=== PATIENT | female | born 1975 | race African-American/Black ===

== ENCOUNTER 2017-05-24 15:46 | Emergency (ER) | payer MEDICAID ==
[~2017-05-24] VITALS: Ht 160 cm; Wt 91.0 kg
[2017-05-24 16:38] VITALS: BP 147/92
[2017-05-24] MEDS ORDERED: METH5TAB4 PO (16:44)
[2017-05-24 17:10] LABS: HEMATOCRIT 35.7 % (34.6-47.8); HEMOGLOBIN 11.8 g/dL (11.7-16.4); WHITE BLOOD COUNT 6.1 x10^3/uL (3.4-10)
[2017-05-24 17:21] LABS: BLOOD UREA NITROGEN 8 mg/dL (7-18)
[2017-05-24 17:24] LABS: ACETAMINOPHEN < 2 mcg/mL (10-30); ASPARTATE AMINO TRANSFERASE 19 U/L (15-37)
[2017-05-24 17:33] LABS: DIFF TOTAL CELLS COUNTED 100 CELL DIFF
[2017-05-24 17:34] LABS: ANISOCYTOSIS 1+; VERIFY COUNTS? YES
[2017-05-24 17:35] LABS: MICROCYTOSIS 1+
== END 2017-05-24 20:14 | disposition home or self-care (01) ==
LOC: ED 17:08
DX: F33.8 Other recurrent depressive disorders (principal); R45.851 Suicidal ideations
CPT/HCPCS: 36415; 80053; 80307; 80329; 85025; 99284; G0479; G0480

== ENCOUNTER 2017-11-27 15:04 | Emergency (ER) | payer MEDICAID ==
[~2017-11-27] VITALS: Ht 165.1 cm; Wt 96.0 kg
[~2017-11-27 15:04] MED LIST: METH5TAB4 PO
[2017-11-27 15:05] VITALS: BP 127/85
== END 2017-11-27 16:10 | disposition home or self-care (01) ==
LOC: ED 15:30
DX: T18.198A Other foreign object in esophagus causing other injury, initial encounter (principal); F19.10 Other psychoactive substance abuse, uncomplicated; F17.210 Nicotine dependence, cigarettes, uncomplicated; X58.XXXA Exposure to other specified factors, initial encounter; Y93.89 Activity, other specified; Y92.89 Other specified places as the place of occurrence of the external cause; Y99.8 Other external cause status
CPT/HCPCS: 74022; 99284

== ENCOUNTER 2018-09-26 23:32 | Inpatient (IN) | payer MEDICAID, OTHER ==
[~2018-09-26] VITALS: Ht 157.5 cm; Wt 90.0 kg
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
[2018-09-27 00:21] LABS: AMPHETAMINE SCREEN, URINE Positive (Negative); BARBITURATE SCREEN, URINE Negative (Negative); BENZODIAZEPINE SCREEN, URINE Negative (Negative); CANNABINOID SCREEN, URINE Negative (Negative); COCAINE SCREEN, URINE Negative (Negative); METHADONE SCREEN, URINE Negative (Negative); OPIATE SCREEN, URINE Negative (Negative)
[2018-09-27 00:23] LABS: ALANINE AMINOTRANSFERASE 45 U/L (12-78); ALBUMIN 3.5 g/dL (3.4-5.0); ANION GAP 6 mmol/L (5-15); CALCIUM 8.8 mg/dL (8.5-10.1); CHLORIDE 113 mmol/L (98-107); CREATININE 0.78 mg/dL (0.55-1.02); SALICYLATE LEVEL 2.1 mg/dL (2.8-20.0)
[2018-09-27 00:27] LABS: ACETAMINOPHEN < 2 mcg/mL (10-30)
[2018-09-27 00:28] LABS: ALKALINE PHOSPHATASE 111 U/L (45-117); BILIRUBIN,TOTAL 0.3 mg/dL (0.2-1.0); TOTAL PROTEIN 6.7 g/dL (6.4-8.2)
[2018-09-27 00:40] LABS: BASOPHILS # (AUTO) 0.05 x10^3/uL (0-0.1); BASOPHILS % (AUTO) 1 % (0-1); EOSINOPHILS # (AUTO) 0.26 x10^3/uL (0-0.4); EOSINOPHILS % (AUTO) 4 % (1-7); LYMPHOCYTES # (AUTO) 2.04 x10^3/uL (1-3.4); LYMPHOCYTES % (AUTO) 30 % (22-44); MD NO; MEAN CORPUSCULAR HEMOGLOBIN 25.5 pg (27.0-34.8); MEAN CORPUSCULAR HGB CONC 33.2 g/dL (32.4-35.8); MEAN CORPUSCULAR VOLUME 76.7 fL (80-100); MEAN PLATELET VOLUME 8.2 fL (7.4-10.4); MONOCYTES # (AUTO) 0.45 x10^3/uL (0.2-0.8); MONOCYTES % (AUTO) 6 % (2-9); NEUTROPHILS # (AUTO) 4.13 x10^3/uL (1.8-6.8); NEUTROPHILS % (AUTO) 60 % (42-75); PLATELET COUNT 453 x10^3/uL (130-400); RED BLOOD COUNT 4.86 x10^6/uL (3.82-5.3); RED CELL DISTRIBUTION WIDTH 19.2 % (9.6-15.2)
[2018-09-27] MEDS ORDERED: PROZAC (00:41)
[2018-09-27] MEDS ORDERED: HYDROXYZINE (00:41)
[2018-09-27] MEDS ORDERED: GEODON (00:41)
[2018-09-27] MEDS ORDERED: GABAPENTIN (00:41)
[2018-09-27] MEDS ORDERED: TRAZADONE (00:41)
--- NOTE | 2018-09-27 00:45 | NUR ---
PT AMBULATED TO BATHROOM. REMAINS VERY UPSET AND CRYING. VSS. UPDATED ON PLAN OF CARE.
[2018-09-27] MEDS ORDERED: LORazepam 1MG TABLET PO ONE (01:00)
[2018-09-27] MEDS ORDERED: LORazepam 1MG TABLET ONE (01:01)
--- NOTE | 2018-09-27 01:04 | NUR ---
PT MEDICATED PER EMAR 1MG ATIVAN PO.
--- NOTE | 2018-09-27 02:14 | NUR ---
PT SLEEPING AT THIS TIME. SITTER AT BEDSIDE. VSS.
--- NOTE | 2018-09-27 03:00 | NUR ---
PT SLEEPING. VSS. SITTER AT BEDSIDE.
[2018-09-27] MEDS ORDERED: ONDANSETRON ODT 4 MG PO PRN (04:00)
[2018-09-27] MEDS ORDERED: DOCUSATE 100 MG CAPSULE PO PRN (04:00)
[2018-09-27] MEDS ORDERED: morphine SULFATE 10 MG/ML, 1ML IVPush PRN (04:00)
--- NOTE | 2018-09-27 04:15 | NUR ---
PT REMAINS SLEEPING. VSS. UPDATED ON PLAN OF CARE. SITTER AT BEDSIDE.
[2018-09-27 04:47] LABS: FREE T4 (FREE THYROXINE) 1.19 ng/dL (0.76-1.46); THYROID STIMULATING HORMONE 0.622 mIU/L (0.358-3.740)
--- NOTE | 2018-09-27 05:10 | NUR ---
PT SLEEPING, UPDATED ON MOVING TO ROOM. VSS. SITTER AT BEDSIDE. REPORT GIVEN TO JOSE POSADAS.
[2018-09-27 05:32] VITALS: BP 109/71
[2018-09-27 07:15] VITALS: BP 107/69
[2018-09-27] MEDS: GABAPENTIN 300 MG CAPSULE PO PRN ×3 (09:19→20:17)
[2018-09-27] MEDS: LORazepam 1MG TABLET PO PRN ×2 (09:22→19:58)
[2018-09-27 12:25] LABS: MICROSCOPIC INDICATED
[2018-09-27 12:41] LABS: CULTURE INDICATED? YES
[2018-09-27 19:13] VITALS: BP 103/64
[2018-09-27] MEDS ORDERED: NICOTINE 21 MG/24 HR PATCH.TD24 TD ONE (20:30)
[2018-09-27] MEDS: ACETAMINOPHEN 325 MG TABLET PO PRN (21:38)
[2018-09-28] MEDS: LORazepam 1MG TABLET PO PRN (01:07)
[2018-09-28] MEDS: ACETAMINOPHEN 325 MG TABLET PO PRN (03:17)
[2018-09-28 08:00] VITALS: BP 122/73
[2018-09-28 08:18] LABS: ALBUMIN 2.8 g/dL (3.4-5.0); ANION GAP 4 mmol/L (5-15); CALCIUM 8.3 mg/dL (8.5-10.1); CHLORIDE 110 mmol/L (98-107)
[2018-09-28 08:20] LABS: MEAN CORPUSCULAR HGB CONC 32.6 g/dL (32.4-35.8); MEAN CORPUSCULAR VOLUME 76.7 fL (80-100); MEAN PLATELET VOLUME 7.9 fL (7.4-10.4); PLATELET COUNT 422 x10^3/uL (130-400); RED BLOOD COUNT 4.47 x10^6/uL (3.82-5.3); RED CELL DISTRIBUTION WIDTH 19.5 % (9.6-15.2)
[2018-09-28 08:23] LABS: ALANINE AMINOTRANSFERASE 40 U/L (12-78); ALKALINE PHOSPHATASE 88 U/L (45-117); BILIRUBIN,TOTAL 0.4 mg/dL (0.2-1.0); CREATININE 0.59 mg/dL (0.55-1.02); TOTAL PROTEIN 5.8 g/dL (6.4-8.2)
[2018-09-28 10:30] LABS: BASOPHILS # (AUTO) 0.03 x10^3/uL (0-0.1); BASOPHILS % (AUTO) 1 % (0-1); EOSINOPHILS # (AUTO) 0.17 x10^3/uL (0-0.4); EOSINOPHILS % (AUTO) 3 % (1-7); LYMPHOCYTES # (AUTO) 1.93 x10^3/uL (1-3.4); LYMPHOCYTES % (AUTO) 39 % (22-44); MD SCAN; MONOCYTES # (AUTO) 0.33 x10^3/uL (0.2-0.8); MONOCYTES % (AUTO) 7 % (2-9); NEUTROPHILS # (AUTO) 2.49 x10^3/uL (1.8-6.8); NEUTROPHILS % (AUTO) 50 % (42-75)
[2018-09-28] MEDS: GABAPENTIN 300 MG CAPSULE PO PRN (13:48)
== END 2018-09-28 15:44 | DRG 885 ==
LOC: ED 23:59 → EDIP 09-27 02:37 → 2N 09-27 05:26
PROVIDERS: ADMIT Internal Medicine; ATTEND Internal Medicine
DX: F33.0 Major depressive disorder, recurrent, mild (principal); R45.851 Suicidal ideations; F29 Unspecified psychosis not due to a substance or known physiological condition; F15.10 Other stimulant abuse, uncomplicated; F17.210 Nicotine dependence, cigarettes, uncomplicated
CPT/HCPCS: 36415; 80053; 80307; 80329; 81001; 84439; 84443; 84703; 85025; 87086; G0378; G0480

== ENCOUNTER 2018-09-28 12:44 | Inpatient (IN) | payer MEDICAID ==
[~2018-09-28] VITALS: Ht 157.5 cm; Wt 87.8 kg
[~2018-09-28 12:44] MED LIST changes: +GABAPENTIN; +GEODON; +HYDROXYZINE; +PROZAC; +TRAZADONE
[2018-09-28] MEDS ORDERED: POLYETHYLENE GLYCOL 17 GM PACKET PO PRN (13:30)
[2018-09-28] MEDS ORDERED: BISACODYL 10 MG SUPP PR PRN (13:30)
[2018-09-28 16:03] VITALS: BP 129/86
[2018-09-28 16:53] LABS: BASOPHILS # (AUTO) 0.04 x10^3/uL (0-0.1); BASOPHILS % (AUTO) 1 % (0-1); EOSINOPHILS # (AUTO) 0.22 x10^3/uL (0-0.4); EOSINOPHILS % (AUTO) 4 % (1-7); HCT (SEDRATE) 35.1 % (34.6-47.8); LYMPHOCYTES # (AUTO) 1.75 x10^3/uL (1-3.4); LYMPHOCYTES % (AUTO) 31 % (22-44); MD NO; MEAN CORPUSCULAR HEMOGLOBIN 25.4 pg (27.0-34.8); MEAN CORPUSCULAR HGB CONC 33.1 g/dL (32.4-35.8); MEAN CORPUSCULAR VOLUME 76.9 fL (80-100); MEAN PLATELET VOLUME 7.9 fL (7.4-10.4); MONOCYTES # (AUTO) 0.37 x10^3/uL (0.2-0.8); MONOCYTES % (AUTO) 7 % (2-9); NEUTROPHILS # (AUTO) 3.19 x10^3/uL (1.8-6.8); NEUTROPHILS % (AUTO) 57 % (42-75); PLATELET COUNT 476 x10^3/uL (130-400); RED BLOOD COUNT 4.56 x10^6/uL (3.82-5.3); RED CELL DISTRIBUTION WIDTH 19.1 % (9.6-15.2)
[2018-09-28 16:57] LABS: ALBUMIN 2.7 g/dL (3.4-5.0); ANION GAP 6 mmol/L (5-15); CALCIUM 8.5 mg/dL (8.5-10.1); CHLORIDE 109 mmol/L (98-107)
[2018-09-28 16:59] VITALS: BP 129/86
[2018-09-28 17:21] LABS: ALANINE AMINOTRANSFERASE 37 U/L (12-78); ALKALINE PHOSPHATASE 103 U/L (45-117); BILIRUBIN,TOTAL 0.3 mg/dL (0.2-1.0); CHOL/HDL RATIO 4.1; CHOLESTEROL, TOTAL 148 mg/dL (140-239); FOLATE LEVEL 15.9 ng/mL (3.1-17.5); HDL CHOL % 24 % (28-40); HDL CHOLESTEROL (DIRECT) 36 mg/dL (40-60); LDL CHOLESTEROL,CALCULATED 82 mg/dL (54-169); LDL/HDL RATIO 2.3 (0.5-3.0); T4 (THYROXINE) 9.7 mcg/dL (4.8-13.9); THYROID STIMULATING HORMONE 0.424 mIU/L (0.358-3.740); TOTAL PROTEIN 5.9 g/dL (6.4-8.2); TRIGLYCERIDES 151 mg/dL (50-200); VLDL CHOLESTEROL 30 mg/dL (0-25)
[2018-09-28] MEDS ORDERED: ONDANSETRON ODT 4 MG SL PRN (18:00)
[2018-09-28] MEDS ORDERED: hydrOXyzine 50MG TABLET PO PRN (18:00)
[2018-09-28] MEDS ORDERED: ZIPRASIDONE 20MG CAPSULE ONE (20:22)
[2018-09-28] MEDS: GABAPENTIN 300 MG CAPSULE PO SCH (20:23)
[2018-09-28] MEDS: HYDROXYZINE PAMOATE 50MG CAP PO PRN (20:24)
[2018-09-28] MEDS: ZIPRASIDONE 40MG CAPSULE PO SCH (20:24)
[2018-09-28 20:38] VITALS: BP 133/84
[2018-09-29 03:59] LABS: CULTURE INDICATED? YES; MICROSCOPIC INDICATED
[2018-09-29 07:56] VITALS: BP 114/71
[2018-09-29] MEDS: ZIPRASIDONE 40MG CAPSULE PO SCH ×2 (09:29→19:12)
[2018-09-29] MEDS: GABAPENTIN 300 MG CAPSULE PO SCH ×2 (09:30→19:11)
[2018-09-29] MEDS: NICOTINE 21 MG/24 HR PATCH.TD24 TD SCH (09:30)
[2018-09-29] MEDS: SENNA/DOCUSATE TABLET PO SCH (09:30)
[2018-09-29] MEDS: FLUOXETINE HCL 20 MG CAPSULE PO SCH (09:30)
[2018-09-29] MEDS ORDERED: ACETAMINOPHEN 325 MG TABLET ONE (16:56)
[2018-09-29] MEDS: ACETAMINOPHEN 325 MG TABLET PO PRN (17:37)
[2018-09-29 19:40] VITALS: BP 127/83
[2018-09-29] MEDS: HYDROXYZINE PAMOATE 50MG CAP PO PRN ×2 (19:52→21:08)
[2018-09-30 07:24] VITALS: BP 117/73
[2018-09-30] MEDS: SENNA/DOCUSATE TABLET PO SCH (08:39)
[2018-09-30] MEDS: GABAPENTIN 300 MG CAPSULE PO SCH ×2 (08:39→20:06)
[2018-09-30] MEDS: FLUOXETINE HCL 20 MG CAPSULE PO SCH (08:40)
[2018-09-30] MEDS: ACETAMINOPHEN 325 MG TABLET PO PRN ×2 (08:40→20:07)
[2018-09-30] MEDS: NICOTINE 21 MG/24 HR PATCH.TD24 TD SCH (08:41)
[2018-09-30 19:12] VITALS: BP 122/78
[2018-09-30] MEDS: ZIPRASIDONE 40MG CAPSULE PO SCH (20:07)
[2018-10-01 07:23] VITALS: BP 111/78
[2018-10-01] MEDS: FLUOXETINE HCL 20 MG CAPSULE PO SCH (08:10)
[2018-10-01] MEDS: NICOTINE 21 MG/24 HR PATCH.TD24 TD SCH (08:10)
[2018-10-01] MEDS: GABAPENTIN 300 MG CAPSULE PO SCH ×2 (08:10→20:13)
[2018-10-01] MEDS: ACETAMINOPHEN 325 MG TABLET PO PRN ×3 (08:10→21:16)
[2018-10-01] MEDS: SENNA/DOCUSATE TABLET PO SCH (08:15)
[2018-10-01] MEDS: ARIPIPRAZOLE 5 MG TABLET PO SCH (08:15)
[2018-10-01 19:41] VITALS: BP 118/78
[2018-10-01] MEDS: ZIPRASIDONE 40MG CAPSULE PO SCH (20:13)
[2018-10-02 07:28] VITALS: BP 129/85
[2018-10-02] MEDS: ACETAMINOPHEN 325 MG TABLET PO PRN ×2 (08:30→20:16)
[2018-10-02] MEDS: GABAPENTIN 300 MG CAPSULE PO SCH ×2 (08:30→20:16)
[2018-10-02] MEDS: NICOTINE 21 MG/24 HR PATCH.TD24 TD SCH (08:30)
[2018-10-02] MEDS: FLUOXETINE HCL 20 MG CAPSULE PO SCH (08:30)
[2018-10-02] MEDS: ARIPIPRAZOLE 5 MG TABLET PO SCH (08:33)
[2018-10-02] MEDS: SENNA/DOCUSATE TABLET PO SCH (08:33)
[2018-10-02 19:44] VITALS: BP 124/81
[2018-10-02] MEDS: ZIPRASIDONE 40MG CAPSULE PO SCH (20:16)
[2018-10-03 07:30] VITALS: BP 103/67
[2018-10-03] MEDS: FLUOXETINE HCL 20 MG CAPSULE PO SCH (08:20)
[2018-10-03] MEDS: ARIPIPRAZOLE 5 MG TABLET PO SCH (08:20)
[2018-10-03] MEDS: ACETAMINOPHEN 325 MG TABLET PO PRN (08:20)
[2018-10-03] MEDS: GABAPENTIN 300 MG CAPSULE PO SCH (08:20)
[2018-10-03] MEDS: NICOTINE 21 MG/24 HR PATCH.TD24 TD SCH (08:21)
[2018-10-03] MEDS: SENNA/DOCUSATE TABLET PO SCH (08:21)
== END 2018-10-03 13:15 | disposition home or self-care (01) | DRG 885 ==
LOC: 3E 15:56
PROVIDERS: ADMIT Psychiatry & Neurology Psychosomatic Medicine; ATTEND Psychiatry & Neurology Psychosomatic Medicine
DX: F33.3 Major depressive disorder, recurrent, severe with psychotic symptoms (principal); E44.0 Moderate protein-calorie malnutrition; F15.20 Other stimulant dependence, uncomplicated; R45.851 Suicidal ideations; F10.20 Alcohol dependence, uncomplicated; F17.210 Nicotine dependence, cigarettes, uncomplicated; G89.29 Other chronic pain; Z79.899 Other long term (current) drug therapy; Z68.35 Body mass index [BMI] 35.0-35.9, adult; Z88.8 Allergy status to other drugs, medicaments and biological substances
CPT/HCPCS: 36415; 80053; 80061; 81001; 82140; 82607; 82746; 84436; 84443; 85025; 85651; 86592; 87086; 93005; Q0177

== ENCOUNTER 2020-12-04 08:21 | Emergency (ER) | payer MEDICAID ==
[~2020-12-04] VITALS: Ht 157.5 cm; Wt 90.5 kg
--- NOTE | 2020-12-04 08:32 | NUR ---
CALLX1, NO ANSWER
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
[2020-12-04] MEDS ORDERED: ALBUTEROL/IPRATROPIUM 2.5MG/0.5MG, 3 ML ONE (09:58)
[2020-12-04] MEDS ORDERED: ALBUTEROL/IPRATROPIUM 2.5MG/0.5MG, 3 ML NPPB ONE (10:00)
--- NOTE | 2020-12-04 10:02 | NUR ---
PT RESTING ON READING [facility]. VSS. MEDICATED PER AUG.
[2020-12-04 10:10] LABS: BASOPHILS % (AUTO) 1 % (0-1); EOSINOPHILS % (AUTO) 12 % (1-7); LYMPHOCYTES % (AUTO) 31 % (22-44); MEAN CORPUSCULAR HEMOGLOBIN 22.2 pg (27.0-34.8); MEAN CORPUSCULAR HGB CONC 31.9 g/dL (32.4-35.8); MEAN PLATELET VOLUME 8.1 fL (7.4-10.4); MONOCYTES % (AUTO) 9 % (2-9); NEUTROPHILS % (AUTO) 46 % (42-75); PLATELET COUNT 385 x10^3/uL (130-400); RED CELL DISTRIBUTION WIDTH 21.4 % (9.6-15.2)
[2020-12-04 10:19] LABS: ALANINE AMINOTRANSFERASE 23 U/L (12-78); ALBUMIN 2.9 g/dL (3.4-5.0); ANION GAP 7 mmol/L (5-15); CALCIUM 8.5 mg/dL (8.5-10.1); CHLORIDE 112 mmol/L (98-107); CREATININE 0.61 mg/dL (0.55-1.02)
[2020-12-04 10:24] LABS: ALKALINE PHOSPHATASE 109 U/L (45-117); BILIRUBIN,TOTAL 0.3 mg/dL (0.2-1.0); TOTAL PROTEIN 6.8 g/dL (6.4-8.2)
[2020-12-04 10:27] LABS: MICROSCOPIC INDICATED
--- NOTE | 2020-12-04 11:01 | NUR ---
PT RESTING ON TIAAN. NADN. REARDON. EDPA STUDENT AT BEDSIDE PERFORMING [employer] EXAM.
[2020-12-04 12:07] LABS: CLUE CELLS NONE SEEN (NONE SEEN); WET PREP WBCS NONE SEEN (FEW)
--- NOTE | 2020-12-04 12:12 | NUR ---
PT CHART REVIEWED AND PLACED FOR RECHECK.
--- NOTE | 2020-12-04 12:13 | NUR ---
PT SLEEPING ON TIANA. NADN. REARDON.
[2020-12-04] MEDS ORDERED: FLUCONAZOLE 100 MG TABLET PO ONE (12:30)
[2020-12-04] MEDS ORDERED: CEFTRIAXONE 1,000 MG IM ONE (12:30)
[2020-12-04] MEDS ORDERED: FLUCONAZOLE 100 MG TABLET ONE (12:37)
[2020-12-04] MEDS ORDERED: CEFTRIAXONE 1,000 MG ONE (12:38)
[2020-12-04 13:09] VITALS: BP 120/67
--- NOTE | 2020-12-04 13:09 | NUR ---
PT MEDICATED PER MAR. NADN. REARDON.
--- NOTE | 2020-12-04 13:14 | NUR ---
WENT INTO ROOM 31 TO GIVE PT DC PAPERS. PT NOT IN ROOM0 NO PERSONAL BELONGINGS. DID NOT RECEIVE RX PRESCRIPTION. LOOKED IN HALLWAYS AND LOBBY W/O SUCCESS OF FINDING PT.
== END 2020-12-04 13:16 | disposition left against medical advice (07) ==
LOC: ED 10:24
DX: N89.8 Other specified noninflammatory disorders of vagina (principal); R07.89 Other chest pain
CPT/HCPCS: 36415; 71045; 80053; 81001; 84702; 85025; 87077; 87086; 87210; 87491; 87591; 87808; 93005; 94640; 96372; 99285; J0696; J7512; 87186